=== PATIENT | male | born 1985 ===

== ENCOUNTER 2017-08-01 20:37 | Emergency (ER) | payer BC ==
--- NOTE | 2017-08-01 21:33 | RAD ---
EXAM: RIGHT ANKLE THREE VIEWS 08/01/17 HISTORY: Twisting injury. Swelling. COMPARISON: None. FINDINGS: There is lateral soft tissue swelling. Joint spaces are preserved. There is subtle lucency involving the posterior superior calcaneus. Possibility of a small avulsive fracture fragment, now located po sterior to the talus may have originated from the calcaneus. Correlate clinically. IMPRESSION: 1. Possible calcaneal injury with a small avulsive fragment. 2. Lateral soft tissue swelling. POS: [facility]
== END 2017-08-01 21:25 | disposition home or self-care (01) ==
LOC: NAV ERS 20:37
DX: M25.571 Pain in right ankle and joints of right foot (principal); W17.89XA Other fall from one level to another, initial encounter